=== PATIENT | female | born 1985 | race African-American/Black ===

== ENCOUNTER 2016-11-03 16:45 | Emergency (ER) | payer OTHER ==
[2016-11-03 16:17] LABS: URINE SOURCE CLEAN CATCH
[2016-11-03 16:29] LABS: URINE APPEARANCE CLEAR; URINE BILIRUBIN NEG (NEG); URINE BLOOD NEG (NEG); URINE COLOR YELLOW; URINE GLUCOSE NEG (NEG); URINE KETONE NEG (NEG); URINE LEUKOCYTE ESTERASE NEG (NEG); URINE NITRATE NEG (NEG); URINE PROTEIN NEG (NEG); URINE SPECIFIC GRAVITY 1.022 (1.003-1.035); URINE UROBILINOGEN 0.2 MG/DL (NEG)
[2016-11-03 16:34] LABS: CULTURE INDICATED? NO
[2016-11-07 08:08] LABS: CHLAMYDIA TRACH Not Detected (Not Detected); N GONOR Not Detected (Not Detected)
== END 2016-11-03 17:00 | disposition home or self-care (01) ==
LOC: CFTX 16:45
PROVIDERS: Nurse Practitioner
DX: N89.8 Other specified noninflammatory disorders of vagina (principal); R30.0 Dysuria
CPT/HCPCS: 81003; 84703; 87220; 87491; 87591; 87808; 87905; 99284

== ENCOUNTER 2017-01-01 11:13 | Emergency (ER) | payer OTHER ==
[2017-01-01 14:04] LABS: URINE SOURCE CLEAN CATCH
[2017-01-01 14:25] LABS: URINE APPEARANCE CLEAR; URINE BILIRUBIN NEG (NEG); URINE BLOOD NEG (NEG); URINE COLOR YELLOW; URINE GLUCOSE NEG (NEG); URINE KETONE NEG (NEG); URINE LEUKOCYTE ESTERASE 3+ (NEG); URINE NITRATE NEG (NEG); URINE PH 6.5 (5-8); URINE PROTEIN NEG (NEG); URINE SPECIFIC GRAVITY 1.021 (1.003-1.035)
[2017-01-01 14:30] LABS: CULTURE INDICATED? YES; URBCS1 AUWI 0-2 /[HPF] (0-2); URINE BACTERIA AUWI 1+ (NEGATIVE); URINE SQUAMOUS EPITHELIAL CELL MOD /[HPF]
[2017-01-04 06:59] LABS: CHLAMYDIA TRACH Not Detected (Not Detected); N GONOR Not Detected (Not Detected)
== END 2017-01-01 15:35 | disposition home or self-care (01) ==
LOC: CFTX 11:13 → CED 11:13 → CFTX 13:45
PROVIDERS: Physician Assistant Medical
DX: N30.90 Cystitis, unspecified without hematuria (principal); N76.0 Acute vaginitis
CPT/HCPCS: 81003; 84703; 87086; 87491; 87591; 87808; 87905; 99283